=== PATIENT | female | born 1990 | race Two or more races ===

== ENCOUNTER 2018-02-10 10:20 | Inpatient (IN) | payer OTHER ==
[2018-02-10] MEDS ORDERED: ELECTROLYTE-148 SOLN 1,000 ML IV SCH ×2 (11:00→13:45)
[2018-02-10 11:24] LABS: BASO % 0.9 % (0-2.0); EOS % 1.1 % (0-4.5); HEMATOCRIT 38.8 % (32.4-45.2); HEMOGLOBIN 13.3 GM/dL (10.7-15.3); LYMPH % 18.8 % (8-40); MCH 29.1 pg (25.7-33.7); MCHC 34.1 g/dl (32.0-36.0); MEAN CELL VOLUME 85.4 fl (80-96); MEAN PLT VOLUME 9.3 fl (7.5-11.1); NEUT % 75.2 % (42.8-82.8); PLATELET COUNT 217 K/MM3 (134-434); RBC 4.55 M/mm3 (3.60-5.2); RDW 15.3 % (11.6-15.6); WHITE BLOOD COUNT 7.8 K/mm3 (4.0-10.0)
[2018-02-10 11:49] LABS: INR 0.94 (0.83-1.09); PROTHROMBIN TIME (PATIENT) 10.6 SEC (9.7-13.0)
[2018-02-10 11:50] VITALS: BMI 29.4
[2018-02-10 11:51] LABS: ACTIVATED PTT 27.5 SECONDS (25.2-36.5)
[2018-02-10 11:54] LABS: ANION GAP 9 MMOL/L (8-16); BLOOD UREA NITROGEN 10 mg/dL (7-18); CALCIUM 8.8 mg/dL (8.5-10.1); CHLORIDE 107 mmol/L (98-107); CO2 21 mmol/L (21-32); CREATININE 0.8 mg/dL (0.55-1.3); GLUCOSE,RANDOM 133 mg/dL (74-106); POTASSIUM 3.6 mmol/L (3.5-5.1); SODIUM 137 mmol/L (136-145)
[2018-02-10] MEDS ORDERED: TUBERCULIN PPD 5 TU/0.1ML SYRINGE (IN PATIENT USE ONLY) ID ONE (12:00)
[2018-02-10] MEDS ORDERED: OXYTOCIN 20 UNITS in 0.9% NS 20 UNIT/1,000 ML INFUS.BAG IV ONE ×2 (12:50→19:59)
[2018-02-10] MEDS ORDERED: LIDOCAINE HCL 1% PRESERVATIVE FREE - 30ML VIAL ONE (12:52)
[2018-02-10] MEDS ORDERED: FENTANYL/BUPIVACAINE/NS/PF - PCEA - 50 ML DISP.SYRIN EP ONE (13:18)
[2018-02-10] MEDS ORDERED: ELECTROLYTE-148 SOLN 500 ML IV ONE (13:38)
--- NOTE | 2018-02-10 13:38 | HP ---
Past Medical History - Admission History of Present Illness: 27 yo @ 40 2/7 wks by first trimester ultrasound, EDC 02/08/2018 complicated by: 1. 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 Bilateral pylectasis noted on anatomy scan s/p subsequent ultrasound which shows a stable EFW (2966, 39% on 01/21/18) and bilateral moderate (grade 2-3) renal pelvis dilation, with suggestion of LEFT hydroureter She reports movement, denies leakage of fluid or vaginal bleeding. She reports contractions began this morning at 0500. History Source: Patient Limitations to Obtaining History: No Limitations - Past Medical History Cardiovascular: No: HTN Pulmonary: No: Asthma Gastrointestinal: No: GERD ...: 3 ...Para: 1 ...Term: 1 ...: 0 ...Spon : 0 ...Induced : 1 ...LMP: 05/10/17 ...EDC by Sono: 02/08/18 Heme/Onc: Yes: Sickle Cell Trait - Past Surgical History Past Surgical History: Yes: None Hx Myomectomy: No Hx Transabdominal Cerclage: No - Smoking History Smoking history: Never smoked Have you smoked in the past 12 months: No - Alcohol/Substance Use Hx Alcohol Use: No History of Substance Use: reports: None - Social History History of Recent Travel: Yes Home Medications - Allergies Allergies/Adverse Reactions: Allergies Allergy/AdvReac Type Severity Reaction Status Date / Time No Known Allergies Allergy Verified 02/10/18 11:37 - Home Medications Home Medications: Ambulatory Orders Vitamins (Sjr) - 1 tab PO DAILY 02/10/18 Family Disease History - Family Disease History Family History: Denies Review of Systems - Review of Systems Constitutional: reports: No Symptoms Cardiovascular: reports: No Symptoms Respiratory: reports: No Symptoms Gastrointestinal: reports: No Symptoms Genitourinary: reports: No Symptoms Musculoskeletal: reports: No Symptoms Integumentary: reports: No Symptoms Neurological: reports: No Symptoms Endocrine: reports: No Symptoms Hematology/Lymphatic: reports: No Symptoms Physical Exam - Maternity Vital Signs: Vital Signs Temperature 98.2 F 02/10/18 12:00 Pulse Rate 73 02/10/18 12:00 Respiratory Rate 20 02/10/18 12:00 Blood Pressure 124/88 02/10/18 12:00 O2 Sat by Pulse Oximetry (%) Constitutional: Yes: Well Nourished, No Distress, Calm Cardiovascular: Yes: Regular Rate and Rhythm Lungs: Clear to auscultation - Abdominal Exam/OB Number of Fetuses: Single Presentation: Vertex Contractions: Yes Regularity: Regular - Vaginal Exam/OB Vaginal Bleediing: No - Physical Exam Edema: No Psychiatric: Yes: Alert, Oriented - Labs Lab Results: CBC, BMP 02/10/18 11:15 02/10/18 11:15 PNL : O positive, antibody negative; RPR NR; HIV neg; HBS Ag neg; HCV neg; Varicella Immune; Rubella Immune; Parvo Non-immune; Hg Yu - SC trait; GCT WNL; GBS neg Hemorrhage Risk Assessment - Risk Factors Medium Risk Factors: Yes: None High Risk Factors: Yes: None Risk Score: 1 Risk Level: Medium Risk Assessment/Plan 27 yo active labor 1. Admit to L&D 2. Routine labs collected and sent 3. Bilateral hydronephrosis and L hydroureter. Notified NICU, will be present for evaluation and delivery 4. Category I FHT 5. GBS negative 6. Will proceed with expectant management
[2018-02-10] MEDS ORDERED: NALOXONE HCL 0.4 MG/ML VIAL IVPUSH PRN (13:58)
[2018-02-10] MEDS ORDERED: FENTANYL/BUPIVACAINE/NS/PF - PCEA - 50 ML DISP.SYRIN EP SCH (14:00)
--- NOTE | 2018-02-10 17:04 | PN ---
Ante-Partal Exam - Subjective Subjective: No complaints, comfortable s/p epidural Vital Signs: Vital Signs Temperature 98.2 F 02/10/18 12:00 Pulse Rate 93 H 02/10/18 16:15 Respiratory Rate 20 02/10/18 16:15 Blood Pressure 120/91 02/10/18 16:15 O2 Sat by Pulse Oximetry (%) 100 02/10/18 16:15 Bleeding: No Headache: No Visual changes: No Right upper quadrant pain: No - Contractions Contractions: Yes Regularity: Regular Intensity: Unaware Monitor Mode: External - Exam during Labor Heart Rate: 130 Variability: Moderate Category: I Monitor Accelerations: Present Monitor Decelerations: None Exam: Vaginal Dilatation (cm): 9.5 Amniotic Membrane Status: Ruptured (forebag noted, ruptured clear fluid) Amniotic Fluid: Clear Presentation: Vertex Station: +1 - Intrapartum Hemorrhage Risk Medium Risk Factors: None High Risk Factors: None Risk Score: 0 Risk Level: Low Risk - Assessment/Plan Assessment/Plan: 27 yo Active labor 1. Forebag noted, AROM, clear fluid; good descent of head 2. GBS neg 3. Category I FHT 4. Pain well controlled with epidural 5. Will proceed with expectant management.
[2018-02-10] MEDS ORDERED: oxyCODONE HCL 5 MG TABLET PO PRN (18:45)
[2018-02-10] MEDS ORDERED: METHYLERGONOVINE MALEATE 0.2 MG/1 ML AMP IM PRN (18:45)
[2018-02-10] MEDS ORDERED: BENZOCAINE 20% 57 GM BOTTLE TP PRN (18:45)
[2018-02-10] MEDS ORDERED: OXYTOCIN 20 UNITS in 0.9% NS 20 UNIT/1,000 ML INFUS.BAG IV SCH (18:45)
[2018-02-10] MEDS ORDERED: BISACODYL 10 MG SUPP.RECT RC PRN (18:45)
[2018-02-10] MEDS ORDERED: BENZOCAINE 28 GM HEMORRHOIDAL OINTMENT TP PRN (18:45)
[2018-02-10] MEDS ORDERED: WITCH HAZEL 50% (TUCKS) 40 PAD/JAR PAD TP PRN (18:45)
--- NOTE | 2018-02-10 18:49 | PN ---
Delivery - Delivery Vaginal Delivery: No Problems Type of Anesthesia: Epidural Episiotomy/Laceration: Midline, 2nd degree EBL (cc): 300 Delivery, Single - Stages of Labor Date 1st Stage Initiatied: 02/10/18 Time 1st Stage Initiated: 05:00 Date 2nd Stage Initiated: 02/10/18 Time 2nd Stage Initiated: 18:00 Date of Delivery: 02/10/18 Time of Delivery: 18:27 Date Placenta Delivered: 02/10/18 Time Placenta Delivered: 18:40 Placenta: Yes: Spontaneous - Condition of Infant Infant Gender: Female Position: Right, OT Total Hours ROM (Hrs/Mins): 6 hours 40 minutes - 1 Minute Total Score: 9 5 Minutes Total Score: 9 - [place] Feeding Plan Initial Plan: Exclusive throughout hospitalization Remarks - Remarks Remarks: Patient progressed to fully dilated and at 1825 via delivered a viable Female infant in ROT position, APGARs 9,9. Weight and length unknown at this time. Head delivered spontaneously followed by shoulders and body without difficulty. with spontaneous cry and placed on mother's abdomen. Nose and mouth was bulb suctioned. Cord was clamped and cut. Perineum and vagina examined, a second degree perineal laceration was noted and repaired in the usual fashion. Rectal exam revealed no sutures in rectum. Placenta was delivered spontaneously and intact. 20 units of pitocin in 1 L IVF was given. All counts correct x 2. Mother and infant stable in LDR. EBL 300cc.
[2018-02-10] MEDS: IBUPROFEN 600 MG TABLET (FP) PO PRN (19:46)
[2018-02-10] MEDS: ACETAMINOPHEN 325 MG TABLET (FP) PO PRN (19:48)
[2018-02-10] MEDS ORDERED: IBUPROFEN 600 MG TABLET (FP) PO ONE (19:50)
[2018-02-10] MEDS ORDERED: ACETAMINOPHEN 325 MG TABLET (FP) ONE (19:50)
--- NOTE | 2018-02-11 00:49 | PN ---
Post Progress Note - Subjective Subjective: Patient without acute complaints. Reports tolerating oral intake without nausea or vomiting. Ambulating without dizziness. Denies fevers or chills. Pain well controlled with oral pain medication. without difficulty. Passing flatus. Post Day: 1 Type of Delivery: Vital Signs: Vital Signs Temperature 98.5 F 02/10/18 18:45 Pulse Rate 75 02/10/18 19:30 Respiratory Rate 20 02/10/18 19:30 Blood Pressure 124/77 02/10/18 19:30 O2 Sat by Pulse Oximetry (%) 100 02/10/18 19:15 Breast Exam: Yes: Soft Uterus: Yes: Fundus Firm, Fundus below umbilicus Abdomen/GI: Yes: Abdomen soft, Passing flatus, Tolerating PO. No: Tender Lochia: Yes: Rubra Lochia, amount: Moderate Extremities: Yes: Calves non-tender, Edema (trace) Perineum: Yes: Laceration Activity: Ambulating - Labs Labs: CBC WBC 7.8 K/mm3 (4.0-10.0) 02/10/18 11:15 RBC 4.55 M/mm3 (3.60-5.2) 02/10/18 11:15 Hgb 13.3 GM/dL (10.7-15.3) 02/10/18 11:15 Hct 38.8 % (32.4-45.2) 02/10/18 11:15 MCV 85.4 fl (80-96) 02/10/18 11:15 MCH 29.1 pg (25.7-33.7) 02/10/18 11:15 MCHC 34.1 g/dl (32.0-36.0) 02/10/18 11:15 RDW 15.3 % (11.6-15.6) 02/10/18 11:15 Plt Count 217 K/MM3 (134-434) 02/10/18 11:15 MPV 9.3 fl (7.5-11.1) 02/10/18 11:15 Absolute Neuts (auto) 5.8 K/mm3 (1.5-8.0) 02/10/18 11:15 Neutrophils % 75.2 % (42.8-82.8) 02/10/18 11:15 Lymphocytes % 18.8 % (8-40) 02/10/18 11:15 Monocytes % 4.0 % (3.8-10.2) 02/10/18 11:15 Eosinophils % 1.1 % (0-4.5) 02/10/18 11:15 Basophils % 0.9 % (0-2.0) 02/10/18 11:15 Nucleated RBC % 0 % (0-0) 02/10/18 11:15 Assessment/Plan 27 yo PPD # 1 s/p , afebrile, vital signs stable, doing well 1. Continue routine care. 2. Follow up AM CBC 3. Rh positive status, no rhogam indicated. 4. Encourage ambulation 5. Continue oral pain medication 6. Anticipate discharge home day #2
[2018-02-11 07:14] LABS: BASO % 0.4 % (0-2.0); EOS % 0.4 % (0-4.5); HEMATOCRIT 33.3 % (32.4-45.2); HEMOGLOBIN 11.5 GM/dL (10.7-15.3); LYMPH % 17.7 % (8-40); MCH 29.3 pg (25.7-33.7); MCHC 34.4 g/dl (32.0-36.0); MEAN PLT VOLUME 9.2 fl (7.5-11.1); MONO % 6.4 % (3.8-10.2); NEUT % 75.1 % (42.8-82.8); PLATELET COUNT 204 K/MM3 (134-434); RBC 3.91 M/mm3 (3.60-5.2); RDW 15.6 % (11.6-15.6)
[2018-02-11] MEDS: PRENATAL VITAMINS W/ FOLIC ACID TABLET (FP) PO SCH (09:35)
[2018-02-11] MEDS ORDERED: DIPHTH,PERTUSS(ACELL),TET 0.5 ML DISP.SYRIN IM ONE (10:00)
[2018-02-11] MEDS ORDERED: SENNOSIDES/DOCUSATE COMBO (SENNA PLUS) TABLET (UD) PO PRN (22:00)
[2018-02-12] MEDS: ACETAMINOPHEN 325 MG TABLET (FP) PO PRN (00:09)
[2018-02-12] MEDS: IBUPROFEN 600 MG TABLET (FP) PO PRN (00:10)
--- NOTE | 2018-02-12 08:34 | PN ---
Post Progress Note - Subjective Subjective: Patient without acute complaints. Reports tolerating oral intake without nausea or vomiting. Ambulating without dizziness. Denies fevers or chills. Pain well controlled with oral pain medication. without difficulty. Passing flatus. Post Day: 2 Type of Delivery: Vital Signs: Vital Signs Temperature 98.6 F 02/11/18 21:30 Pulse Rate 84 02/11/18 21:30 Respiratory Rate 18 02/11/18 21:30 Blood Pressure 122/69 02/11/18 21:30 O2 Sat by Pulse Oximetry (%) 100 02/10/18 19:15 Breast Exam: Yes: Soft Uterus: Yes: Fundus Firm, Fundus below umbilicus Abdomen/GI: Yes: Abdomen soft. No: Tender Lochia: Yes: Rubra Lochia, amount: Small Extremities: Yes: Calves non-tender, Edema (trace) Perineum: Yes: Laceration - Labs Labs: CBC WBC 11.0 K/mm3 (4.0-10.0) H 02/11/18 06:00 RBC 3.91 M/mm3 (3.60-5.2) 02/11/18 06:00 Hgb 11.5 GM/dL (10.7-15.3) 02/11/18 06:00 Hct 33.3 % (32.4-45.2) 02/11/18 06:00 MCV 85.0 fl (80-96) 02/11/18 06:00 MCH 29.3 pg (25.7-33.7) 02/11/18 06:00 MCHC 34.4 g/dl (32.0-36.0) 02/11/18 06:00 RDW 15.6 % (11.6-15.6) 02/11/18 06:00 Plt Count 204 K/MM3 (134-434) 02/11/18 06:00 MPV 9.2 fl (7.5-11.1) 02/11/18 06:00 Absolute Neuts (auto) 8.2 K/mm3 (1.5-8.0) H 02/11/18 06:00 Neutrophils % 75.1 % (42.8-82.8) 02/11/18 06:00 Lymphocytes % 17.7 % (8-40) 02/11/18 06:00 Monocytes % 6.4 % (3.8-10.2) 02/11/18 06:00 Eosinophils % 0.4 % (0-4.5) 02/11/18 06:00 Basophils % 0.4 % (0-2.0) 02/11/18 06:00 Nucleated RBC % 0 % (0-0) 02/11/18 06:00 Assessment/Plan 27 yo PPD # 2 s/p , afebrile, vital signs stable, doing well 1. Patient stable for discharge home today. 2. Patient encouraged to contact MD for: - Severe pain not controlled by oral pain medication - Fevers or chills - Nausea or vomiting, intolerance of oral intake 3. Patient to follow up in office in 4-6 weeks for visit
--- NOTE | 2018-02-12 08:36 | DS ---
Physical Exam-[employer] Vital Signs: Vital Signs Temperature 98.6 F 02/11/18 21:30 Pulse Rate 84 02/11/18 21:30 Respiratory Rate 18 02/11/18 21:30 Blood Pressure 122/69 02/11/18 21:30 O2 Sat by Pulse Oximetry (%) 100 02/10/18 19:15 Labs: CBC, BMP 02/11/18 06:00 02/10/18 11:15 Delivery - Delivery Vaginal Delivery: No Problems Type of Anesthesia: Local, Epidural Episiotomy/Laceration: Vaginal Extension/lac, 2nd degree EBL (cc): 300 Delivery, Single - Stages of Labor Date 1st Stage Initiatied: 02/10/18 Time 1st Stage Initiated: 05:00 Date 2nd Stage Initiated: 02/10/18 Time 2nd Stage Initiated: 18:00 Date of Delivery: 02/10/18 Time of Delivery: 18:27 Time Placenta Delivered: 18:40 Placenta: Yes: Spontaneous - Condition of Infant Chlorinator/Gusset Folder Present: Yes Name: Josi Segovia Gender: Female Weight: 8 lb 9 oz Position: Right, OA Total Hours ROM (Hrs/Mins): 5hrs 27min - 1 Minute Total Score: 9 5 Minutes Total Score: 9 - Feeding Plan Initial Plan: Exclusive throughout hospitalization Remarks - Remarks Remarks: Patient progressed to fully dilated and at 1825 via delivered a viable Female infant in ROT position, APGARs 9,9. Weight and length unknown at this time. Head delivered spontaneously followed by shoulders and body without difficulty. Infant with spontaneous cry and placed on mother's abdomen. Nose and mouth was bulb suctioned. Cord was clamped and cut. Perineum and vagina examined, a second degree perineal laceration was noted and repaired in the usual fashion. Rectal exam revealed no sutures in rectum. Placenta was delivered spontaneously and intact. 20 units of pitocin in 1 L IVF was given. All counts correct x 2. Mother and stable in LDR. EBL 300cc. Discharge Summary Reason For Visit: LABOR ADMISSION Current Active Problems Vaginal delivery (Acute) Procedures: Principal: Vaginal delivery Hospital Course: Patient was admitted in spontaneous labor and proceeded to deliver via a viable female infant PPD # 1 patient ambulated, voiding, passing gas, tolerating oral intake and with adequate pain control. Noted to have mild asymptomatic anemia She fulfilled all criteria for discharge PPD #2 Condition: Good - Instructions Diet, Activity, Other Instructions: Physical activity Resume your normal everyday activity as tolerated no heavy lifting or exercise until seen by your surgeon. You may walk unlimited juana of and climb stairs. You may resume driving the car when you feel safe and comfortable behind the wheel. No sexual activity as instructed. Diet There are no dietary restrictions. Eat healthy, high-fiber foods. Drink 6 to 8 glasses of liquid each day. This will assist in keeping your bowels are regular. Pain management You may take Tylenol or acetaminophen or Ibuprofen (for example, Motrin, Advil etc.) from my pain prescription medication is ordered should be taken as prescribed for moderate to severe pain. Please call for the following: Severe pain not relieved by medication Fever of 101 or higher Excessive bleeding or drainage on dressing Inability to urinate Referrals: Keyana Womack MD [Staff Physician] - Disposition: HOME - Home Medications Comprehensive Discharge Medication List: Ambulatory Orders Vitamins (Sjr) - 1 tab PO DAILY 02/10/18
[2018-02-12 09:22] VITALS: BP 106/68; PULSE 73; TEMP 98.2
[2018-02-12] MEDS: PRENATAL VITAMINS W/ FOLIC ACID TABLET (FP) PO SCH (09:43)
== END 2018-02-12 14:25 | disposition home or self-care (01) | DRG 775 ==
LOC: JLDR 10:20 → J3W 20:19
PROVIDERS: ADMIT Obstetrics & Gynecology; ATTEND Obstetrics & Gynecology
PROC: 10E0XZZ Delivery of Products of Conception, External Approach (ICD-10-PCS; principal; 2018-02-10)
PROC: 0KQM0ZZ Repair Perineum Muscle, Open Approach (ICD-10-PCS; 2018-02-10)
DX: O48.0 Post-term pregnancy (principal); O70.1 Second degree perineal laceration during delivery; Z37.0 Single live birth; Z3A.40 40 weeks gestation of pregnancy
CPT/HCPCS: 36415; 59409; 80048; 85025; 85610; 85730; 86593; 86850; 86900; 86901; 87389; 90715

== ENCOUNTER 2018-03-20 22:28 | Emergency (ER) | payer OTHER ==
[2018-03-20 22:36] VITALS: BMI 24.3
--- NOTE | 2018-03-20 23:01 | PDOC ---
History of Present Illness - General Chief Complaint: Vaginal Sxs Stated Complaint: PELVIC PAIN Time Seen by Provider: 03/20/18 23:01 - History of Present Illness Initial Comments: Claudia Cardoza is an otherwise healthy 28yo woman, , 5 weeks post uncomplicated vaginal delivery who presents to the ED tonight with concerns for herpes after she noted some redness to her external genitalia today. She reports that she has not had any vaginal or urological symptoms since her delivery including pain, discharge, or bleeding. She was looking at her external genitalia in a mirror today and noticed the redness. She looked it up online and became concerned that she may have herpes that could have been passed to her new baby. Ms Cardoza is not current sexually active since the . She has had only one sexual partner for multiple years, her fiance, and has no concerns about him having any symptoms of STD or lesions. She denies any personal history of STD, and she reports that she had regular obstetric care throughout her including testing for infection prior to her delivery. She did not have any pain, burning, irritation, or any other symptom that prompted her to look at her labia today. She additionally denies any urinary symptoms, fever, shivering chills, nausea/vomiting, change in bowel habits, or abdominal pain. She has had a poor appetite lately and has felt worried about her baby constantly. She denies feeling depressed and states that she has plenty of help at home with her new baby and a 3 year old son. Past History - Past Medical History Allergies/Adverse Reactions: Allergies Allergy/AdvReac Type Severity Reaction Status Date / Time No Known Allergies Allergy Verified 03/21/18 00:04 Asthma: No Cancer: No Cardiac Disorders: No COPD: No Diabetes: No HTN: No Seizures: No Thyroid Disease: No - Suicide/Smoking/Psychosocial Hx Smoking History: Never smoked Have you smoked in the past 12 months: No Hx Alcohol Use: No Drug/Substance Use Hx: No Hx Substance Use Treatment: No Review of Systems - Review of Systems Comments:: General: No fevers, no chills, no weight or appetite change, no malaise HEENT: No changes in vision, no changes in hearing, no congestion, no sore throat CV: No chest pain, no palpitations, no LE edema Pulm: No SOB, no cough, no wheezing GI: No nausea or vomiting, no change in bowel habits, no melena : No frequency, no urgency, no dysuria. Recent vaginal delivery. No unusual discharge Musc: No back pain, no joint swelling, no recent injury Skin: No rash, no lesions, no erythema Endo: No excessive thirst, no heat/cold intolerance Heme: No unusual bruising or bleeding, no swollen glands Neuro: No syncope, no numbness/tingling, no focal weakness Vasc: No claudication Psych: No recent change in mood, no SI or HI *Physical Exam - Vital Signs Last Vital Signs Temp Pulse Resp BP Pulse Ox 98.9 F 110 H 18 132/86 98 03/20/18 22:29 03/20/18 22:29 03/20/18 22:29 03/20/18 22:29 03/20/18 22:29 - Physical Exam Comments: General: Comfortable, no acute distress HEENT: PERRL, EOMI, MMM, voice normal, normal neck ROM, no LAD Cards: RRR, no murmur appreciated Pulm: Comfortable on room air, clear to auscultation bilaterally Abd: Soft, nontender, nondistended : Normal external genitalia. Minor erythema on labia. Small 1-2mm lesion on rt labia minora without drainage, ulceration, or sign of local irritation. Small amount of white vaginal discharge. Normal internal exam, external os with slight opening, no bleeding, no internal lesions or abrasions. Ext: Atraumatic. No LE edema. ROM intact. Strength 5/5 and equal bilaterally Vasc: Extremities WWP. Palpable radial and pedal pulses bilaterally Skin: Normal color, no rashes or lesions Neuro: A&Ox3, CN grossly intact, normal speech, motor/sensory grossly intact and symmetric Psych: Tearful, upset Medical Decision Making - Medical Decision Making 03/20/18 23:58 Claudia Schroeder is an otherwise healthy 28yo woman, 5 weeks post uncomplicated vaginal delivery, who presents with concerns about possible herpes or vaginal infection after noticing some redness on her labia and a pimple on her buttocks. - Pelvic exam reassuring. Labia with minor erythema and irritation but no discharge, lesions, abrasions or other abnormalities concerning for infection. Pimple on left buttock appears to be an uncomplicated pimple without discharge or surrounding erythema. - UA, urine culture, urine GC/chlamydia sent - Patient reassured that she has no sign of herpes. She reports being concerned about her new baby being infected as she looked up herpes online. Provided more reassurance and information. - Concern for mild post- depression; patient was tearful throughout exam. Discussed with patient. Will send for follow up. Seen and discussed with Dr Villatoro. Ev Pierre PGY1 *DC/Admit/Observation/Transfer Diagnosis at time of Disposition: Normal appearance of female genitalia - Discharge Dispostion Disposition: HOME Condition at time of disposition: Stable Decision to Admit order: No - Referrals Referrals: [facility] [place] [facility] [place] [facility] [place] [Provider Group] - Patient Instructions Printed Discharge Instructions: Depression Additional Instructions: Discharge Instructions; - You were seen in the ED due to concern for infection following your recent labor and delivery. Your physical exam including a pelvic exam was normal without any concerns for infection. You had a urine test as well as tests for gonorrhea and chlamydia that were also normal. - You should follow up with a primary physician within the next week. You have been referred to the [facility] resident clinic. - Follow up with your OB at your previously scheduled appointment on the - Please seek immediate medical care if you have unusual vaginal bleeding, significant nausea/vomiting and abdominal pain that prevents you from eating, or loss of consciousness. - Post Discharge Activity
--- NOTE | 2018-03-20 23:20 | PDOC ---
Attending Attestation - HPI HPI: 03/21/18 00:00 The patient is a 28 year old female (5 weeks ) with no significant PMH of who presents to the emergency department with vaginal pain and redness since earlier today. The patient reports that she had a normal child about 5 weeks ago. She states that she has noticed some increased erythema on her labia. She was concerned for possible herpes s/p researching online. The patient denies having more than 1 sexual partner or any history of STDs in the past. The patient reports that she her was seen at the pmd office with a normal exam. 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 She denies any other symptoms . she denies any fever, chills, nausea, vomiting, diarrhea, constipation or urinary complaints. She denies any vaginal discharge or bleeding. She denies any chest pain , shortness of breath, headache or dizziness. The patient denies any other complaints. - Physicial Exam PE: 03/21/18 00:00 GENERAL: Awake, alert, and fully oriented, in no acute distress HEAD: No signs of trauma EYES: PERRLA, EOMI, sclera anicteric, conjunctiva clear ENT: Auricles normal inspection, hearing grossly normal, nares patent, oropharynx clear without exudates. Moist mucosa NECK: Normal ROM, supple, no lymphadenopathy, JVD, or masses LUNGS: Breath sounds equal, clear to auscultation bilaterally. No wheezes, and no crackles HEART: Regular rate and rhythm, normal S1 and S2, no murmurs, rubs or gallops ABDOMEN: Soft, nontender, normoactive bowel sounds. No guarding, no rebound. No masses EXTREMITIES: Normal range of motion, no edema. No clubbing or cyanosis. No cords, erythema, or tenderness NEUROLOGICAL: Cranial nerves II through XII grossly intact. Normal speech, normal gait SKIN: Warm, Dry, normal turgor, no rashes or lesions noted. PELVIC: Normal. No suture. Documentation prepared by Christen Barcenas, acting as certified ophthalmic medical technician for Katrin Villatoro MD. <Christen Barcenas - Last Filed: 03/21/18 00:00> - Resident Resident Name: Ev Pierre - ED Attending Attestation I have performed the following: I have examined & evaluated the patient, The case was reviewed & discussed with the resident, I agree w/resident's findings & plan - Medical Decision Making 03/21/18 00:47 Exam is normal; pt is anxious that she and her 5 week old daughter may have herpes. However exam normal. Child appears normal. Pt has no herpes and we have reassured her. UA pending, She can follow with her coordinator of genetic services <Katrin Villatoro - Last Filed: 03/21/18 00:48>
[2018-03-21 00:37] LABS: URINE APPEARANCE CLEAR; URINE BILIRUBIN NEGATIVE (<2.0 mg/dL); URINE COLOR LTYELLOW; URINE GLUCOSE (UA) NEGATIVE (NEGATIVE); URINE KETONE 1+ (NEGATIVE); URINE LEUK ESTERASE NEGATIVE (NEGATIVE); URINE NITRITE NEGATIVE (NEGATIVE); URINE PROTEIN NEGATIVE (NEGATIVE); URINE UROBILINOGEN NEGATIVE mg/dL (0.2-1.0)
[2018-03-21 00:58] VITALS: BP 115/84; PULSE 83; TEMP 97.9
== END 2018-03-21 01:02 | disposition home or self-care (01) ==
LOC: JER 22:28
DX: O90.89 Other complications of the puerperium, not elsewhere classified (principal); R10.2 Pelvic and perineal pain
CPT/HCPCS: 36415; 81003; 87086; 87491; 87591; 99281-25